=== PATIENT | male | born 1980 | race Two or more races ===

== ENCOUNTER 2018-09-29 18:11 | Emergency (ER) | payer SELFPAY ==
[~2018-09-29] VITALS: Ht 185.4 cm; Wt 86.2 kg
[2018-09-29 19:20] LABS: Basophils # (auto) 0 uL; Basophils % (auto) 0.5 % (0.0-2.0); Eosinophils # (auto) 0.1 uL; Eosinophils % (auto) 1.5 % (0.0-7.0); Hematocrit 38.6 % (41.0-53.0); Hemoglobin 12.5 g/dL (13.5-17.5); Lymphocytes % (auto) 17.8 % (10.0-50.0); Mean Corpuscular Hemoglobin 26.6 pg (28.0-32.0); Mean Corpuscular Hgb Conc. 32.3 g/dL (32.0-36.0); Mean Corpuscular Volume 82.4 fL (80.0-100.0); Monocytes # (auto) 0.4 uL; Neutrophils # (auto) 4.3 uL; Neutrophils % (auto) 73.2 % (37.0-80.0); Nucleated Red Blood Cells % 0.1 %; Platelet Count (auto) 174 10^3/uL (140-450); Red Blood Cells 4.69 10^6/uL (4.5-5.90); Red Cell Distribution Width 15.7 % (11.8-14.3); White Blood Cell 5.8 10^3/uL (4.4-10.8)
[2018-09-29 20:01] LABS: Alanine Aminotransferase 22 U/L (16-61); Albumin 3.1 g/dL (3.4-5.0); Anion Gap 6 (5-15); Aspartate Aminotransferase 18 U/L (15-37); Blood Urea Nitrogen 15 mg/dL (7-18); Calcium 8.3 mg/dL (8.5-10.1); Carbon Dioxide 26 mmol/L (21-32); Chloride 106 mmol/L (98-107); GFR African American 144 mL/min; GFR Non-African American 119 mL/min; Glucose 94 mg/dL (74-106); Potassium 4.1 mmol/L (3.5-5.1); Sodium 138 mmol/L (136-145)
[2018-09-29 20:04] LABS: Alkaline Phosphatase 102 U/L (45-117); Bilirubin, Total 0.6 mg/dL (0.2-1.0); Total Protein 7.6 g/dL (6.4-8.2)
[2018-09-29 20:31] VITALS: BP 137/92
== END 2018-09-30 00:16 | disposition home or self-care (01) ==
LOC: EDBD 18:11 → ER 18:19
DX: R56.9 Unspecified convulsions (principal); F17.210 Nicotine dependence, cigarettes, uncomplicated; Z88.6 Allergy status to analgesic agent
CPT/HCPCS: 36415; 70450; 80053; 83880; 85025